=== PATIENT | female | born 1965 | race Asian ===

== ENCOUNTER 2023-06-19 11:38 | Outpatient (CLI) | payer BC | END 2023-06-19 11:39 | disposition home or self-care (01) | LOC: CSHMAMMO 11:38 | PROVIDERS: ATTEND Obstetrics & Gynecology | DX: Z13.820 Encounter for screening for osteoporosis (principal); M85.89 Other specified disorders of bone density and structure, multiple sites | CPT/HCPCS: 77080 ==